=== PATIENT | male | born 1985 | race American Indian/Alaskan Native ===

== ENCOUNTER 2018-12-10 08:41 | Emergency (ER) | payer OTHER ==
[2018-12-10 08:49] VITALS: BP 115/84
--- NOTE | 2018-12-10 09:49 | Emergency Department Report ---
ED Back Pain/Injury HPI - General Chief Complaint: Back Pain/Injury Stated Complaint: SHARP PAINS IN CHEST AND BACK Time Seen by Provider: 12/10/18 09:16 Source: patient Limitations: No Limitations - History of Present Illness Initial Comments: he is a 33-year-old male presents ED complaining of mid to upper back pain that began yesterday. Patient states that she has like something is squeezing his mid thoracic back. Patient states pain is spasmodic in nature it's worse with certain movement. He denies any trauma, injuries to the back. MD Complaint: back pain Place: home Radiation: none Severity: mild, moderate Severity scale (0 -10): 5 Consistency: intermittent Improves With: none Worsens With: movement Associated Symptoms: denies: confusion, weakness, chest pain, numbness, cough, constipation, headaches - Related Data Previous Rx's Medication Instructions Recorded Last Taken Type Azithromycin [Zithromax] 250 mg PO DAILY #5 tablet 09/27/15 Unknown Rx Meclizine [Antivert] 25 mg PO Q8H PRN #30 tablet 09/27/15 Unknown Rx Nicotine [Habitrol] 21 mg TD QDAY #10 patch 09/27/15 Unknown Rx Cyclobenzaprine [Flexeril] 10 mg PO QHS #20 tablet 12/10/18 Unknown Rx Ibuprofen [Motrin 800 MG tab] 800 mg PO TID #20 tablet 12/10/18 Unknown Rx Allergies Allergy/AdvReac Type Severity Reaction Status Date / Time No Known Allergies Allergy Verified 09/25/15 10:46 ED Review of Systems ROS: Stated complaint: SHARP PAINS IN CHEST AND BACK Other details as noted in HPI Comment: All other systems reviewed and negative ED Past Medical Hx - Past Medical History Previous Medical History?: No Hx COPD: No Hx HIV: No - Surgical History Past Surgical History?: No - Social History Smoking Status: Current Every Day Smoker Substance Use Type: None - Medications Home Medications: Home Medications Medication Instructions Recorded Confirmed Last Taken Type Azithromycin [Zithromax] 250 mg PO DAILY #5 tablet 09/27/15 Unknown Rx Meclizine [Antivert] 25 mg PO Q8H PRN #30 tablet 09/27/15 Unknown Rx Nicotine [Habitrol] 21 mg TD QDAY #10 patch 09/27/15 Unknown Rx Cyclobenzaprine [Flexeril] 10 mg PO QHS #20 tablet 12/10/18 Unknown Rx Ibuprofen [Motrin 800 MG tab] 800 mg PO TID #20 tablet 12/10/18 Unknown Rx ED Physical Exam - General Limitations: No Limitations General appearance: alert, in no apparent distress - Head Head exam: Present: atraumatic, normocephalic - Eye Eye exam: Present: normal appearance - ENT ENT exam: Present: mucous membranes moist - Neck Neck exam: Present: normal inspection - Respiratory Respiratory exam: Present: normal lung sounds bilaterally. Absent: respiratory distress, wheezes, rales, rhonchi, chest wall tenderness, accessory muscle use - Cardiovascular Cardiovascular Exam: Present: regular rate, normal rhythm. Absent: systolic murmur, diastolic murmur, rubs, gallop - GI/Abdominal GI/Abdominal exam: Present: soft, normal bowel sounds. Absent: tenderness - Rectal Rectal exam: Present: deferred - Extremities Exam Extremities exam: Present: normal inspection - Back Exam Back exam: Present: normal inspection, full ROM. Absent: tenderness, CVA tenderness (R), CVA tenderness (L) - Neurological Exam Neurological exam: Present: alert, oriented X3 - Psychiatric Psychiatric exam: Present: normal affect, normal mood - Skin Skin exam: Present: warm, dry, intact, normal color. Absent: rash ED Course Vital Signs 12/10/18 08:47 Temperature 99.0 F Pulse Rate 84 Respiratory 22 Rate Blood Pressure 115/84 ED Medical Decision Making - Radiology Data Radiology results: image reviewed No acute cardiopulmonary process, negative thoracic lumbar spine x-ray - Medical Decision Making 33-year-old male presents with thoracic back muscle spasm Patient received Motrin in the ED. X-ray shows no acute structures findings. Vital signs is has normal. patient is in no acute distress. Discussed heat therapy 3 times a day. Discussed with patient follow-up with primary care physician. Discussed the patient and take medications as prescribed. Patient has no neurological deficit. Patient is alert and oriented 3 and understands all instructions given. Discussed drowsiness effect of Flexeril makes her drowsy and not to operate machinery while taking flexeril . Critical care attestation.: If time is entered above; I have spent that time in minutes in the direct care of this critically ill patient, excluding procedure time. ED Disposition Clinical Impression: Muscle spasm of back Disposition: DC-01 TO HOME OR SELFCARE Is pt being admited?: No Does the pt Need Aspirin: No Condition: Stable Instructions: Muscle Spasm (ED), Musculoskeletal Pain (ED), Trigger Point Pain (ED) Additional Instructions: Make sure to follow up with the primary care physician as discussed. Take all your medications as you've been prescribed. If you have any worsening symptoms or develop new symptoms please return to ED immediately. Prescriptions: Cyclobenzaprine [Flexeril] 10 mg PO QHS #20 tablet Ibuprofen [Motrin 800 MG tab] 800 mg PO TID #20 tablet Referrals: KANDACE CANTU MD [Primary Care Provider] - 3-5 Days Forms: Work/School Release Form(ED) Time of Disposition: 10:54
[2018-12-10] MEDS ORDERED: IBUPROFEN PO ONE (10:17)
--- NOTE | 2018-12-10 10:45 | XRay Report ---
Single view chest: History: Chest pain. Findings: Normal cardiomediastinal silhouette. Trachea is midline. No consolidation, pneumothorax or pleural effusion. Impression: No acute cardiopulmonary findings
--- NOTE | 2018-12-10 10:47 | XRay Report ---
Thoracic spine 2 views: History: Back pain. Findings: Normal height the vertebral bodies and intervertebral disc. Normal articular surfaces. No fracture. No paravertebral mass. Impression: Essentially negative thoracic spine.
== END 2018-12-10 11:06 | disposition home or self-care (01) ==
LOC: ED 08:41
DX: M62.830 Muscle spasm of back (principal); F17.200 Nicotine dependence, unspecified, uncomplicated
CPT/HCPCS: 71045; 72070; 99283